=== PATIENT | female | born 1955 | race Caucasian/White ===

== ENCOUNTER → 2020-03-05 | Day surgery (SDC) | payer MEDICARE, OTHER ==
[~2020-03-05] MED LIST: ASPIRIN EC81 MG PO; BISOPROLOL FUMAR5 MG PO; DITROPAN5 MG PO; EFFEXOR XR150 MG PO; LASIX40 MG PO; LIPITOR40 MG PO; METFORMIN HCL500 MG PO; NITROQUIK SL0.4 MG SL; PERCOCET 7.5/321 TAB PO; PLAVIX75 MG PO; PROTONIX 40MG T40 MG PO; SIMPONI50 MG/0.1 IJ; VENTOLIN HFA IN18 GM INH; ZESTRIL5 MG PO; ZOFRAN8 MG PO
== END | disposition home or self-care (01) ==
LOC: FAS 08:21
DX: D50.0 Iron deficiency anemia secondary to blood loss (chronic) (principal); K57.30 Diverticulosis of large intestine without perforation or abscess without bleeding; K44.9 Diaphragmatic hernia without obstruction or gangrene; K64.1 Second degree hemorrhoids; I25.10 Atherosclerotic heart disease of native coronary artery without angina pectoris; J44.9 Chronic obstructive pulmonary disease, unspecified; F32.9 Major depressive disorder, single episode, unspecified; K21.9 Gastro-esophageal reflux disease without esophagitis; E78.00 Pure hypercholesterolemia, unspecified; I50.9 Heart failure, unspecified; G47.33 Obstructive sleep apnea (adult) (pediatric); M06.9 Rheumatoid arthritis, unspecified; E11.9 Type 2 diabetes mellitus without complications; M81.0 Age-related osteoporosis without current pathological fracture; Z87.891 Personal history of nicotine dependence; Z95.5 Presence of coronary angioplasty implant and graft; Z79.84 Long term (current) use of oral hypoglycemic drugs; E66.9 Obesity, unspecified; Z68.35 Body mass index [BMI] 35.0-35.9, adult
CPT/HCPCS: J2250; J7120